=== PATIENT | female | born 1990 | race American Indian/Alaskan Native ===

== ENCOUNTER 2017-06-20 23:20 | Inpatient (IN) | payer OTHER ==
[2017-06-20] MEDS ORDERED: NACL 0.9% 1000 ML 1,000 ML IV ONE (23:30)
[2017-06-20] MEDS ORDERED: GEODON IM PRN (23:30)
--- NOTE | 2017-06-20 23:38 | Emergency Department Report ---
ED General Adult HPI - General Chief complaint: Altered Mental Status Stated complaint: POSS OVERDOSE/AMS Time Seen by Provider: 06/20/17 23:30 Source: patient, family, EMS (verbal report received from EMS.ems notes not available at time of chart dictation), RN notes reviewed Limitations: Altered Mental Status - History of Present Illness Initial comments: This is a 26-year-old female. She is previously unknown to me. She is brought to the hospital by EMS for altered mental status and possible overdose. As per verbal report from EMS, patient is found down, at home, for uncertain duration of time, via uncertain mechanism. They report normal fingerstick. Upon arrival to the ER, patient was altered, combative, not following commands. She required Geodon to facilitate her diagnostic workup. A noncontrast CT scan of the brain was negative, the patient was afebrile rectally, serum toxicology screen was negative, she had a nonspecific leukocytosis, and otherwise her workup was unremarkable. Her mother arrived shortly thereafter, and indicated the patient had been depressed, and has lost her job. She is not sure if the patient has attempted suicide. The patient's symptoms are constant. I do not have any exacerbating or relieving factors. The local Poison Control Center was contacted, and made the following recommendations: 2330 Arrive per EMS. Non responsive but moving extremities and combative at times. Clothes very wet. Placed on monitor and O2 sat. Positioning in position. Dr Ovalle at bedside evaluating pt. Menses noted and foly cath placed. EJ #18 left neck placed by Dr Ovalle. INT #20 established by EMS in Right AC. Mother at bedside. 0030 No worsening of condition. Continues to be monitored. 0130 Continues to be monitored. 0300 POISON CONTROL CALLED AND INSTRUCTIONS ARE: SEDATION TO BE EXPECTED AND ANTICHOLERNERGIC SYMPTOMS.NO GEODON NOR HALDOL ONLY BENZO. PHYSOSTIGMINE FOR SEVERE AND REFRACTORY SYMPTOMS. CHECK EKG FOR QT ELONGATION (CHECK POTASSIUM, CALCIUM MAGNESIUM) AND WIDE QRS (TO BE TREATED WITH BICARB) TO BE OBSERVED 6 TO 8 HOURS. Patient is currently sedated, sleeping comfortably, with no distress. A 1013 form is filled out. The case is presented to the Hospital physician, Dr. Phan, who accepts the patient to his service for possible overdose, presumed toxic encephalopathy. Given unknown duration of time, uncertain time of ingestion, the patient is on a charcoal candidate, and she is not a TPA candidate. -: unknown Consistency: constant Improves with: none Worsens with: none Associated Symptoms: confusion - Related Data Home Medications Medication Instructions Recorded Confirmed Last Taken Flexeril 10 MG TAB 1 tab PO BID PRN 06/21/17 06/21/17 Unknown Allergies Allergy/AdvReac Type Severity Reaction Status Date / Time pseudoephedrine HCl Allergy Itching Verified 06/21/17 03:05 [From [facility]] ED Review of Systems ROS: Stated complaint: POSS OVERDOSE/AMS Other details as noted in HPI Comment: Unobtainable due to pts medical conditions Neurological: confusion Psychiatric: depression ED Past Medical Hx - Medications Home Medications: Home Medications Medication Instructions Recorded Confirmed Last Taken Type Flexeril 10 MG TAB 1 tab PO BID PRN 06/21/17 06/21/17 Unknown History ED Physical Exam - General Limitations: Physical Limitation General appearance: lethargic - Head Head exam: Present: atraumatic, normocephalic - Eye Eye exam: Present: normal appearance, EOMI. Absent: nystagmus - ENT ENT exam: Present: normal exam, normal orophraynx, mucous membranes moist, normal external ear exam - Neck Neck exam: Present: normal inspection, full ROM. Absent: tenderness, meningismus - Respiratory Respiratory exam: Present: normal lung sounds bilaterally. Absent: respiratory distress, wheezes, rales, rhonchi, stridor, chest wall tenderness, accessory muscle use, decreased breath sounds, prolonged expiratory - Cardiovascular Cardiovascular Exam: Present: normal rhythm, tachycardia, normal heart sounds. Absent: systolic murmur, diastolic murmur, rubs, gallop - GI/Abdominal GI/Abdominal exam: Present: soft, normal bowel sounds. Absent: distended, tenderness, guarding, rebound, rigid, pulsatile mass - Rectal Rectal exam: Present: normal inspection, other (escorted by nurse modesto brody) - External exam: Present: normal external exam, other (escorted by nurse Horta) - Extremities Exam Extremities exam: Present: normal inspection. Absent: tenderness - Back Exam Back exam: Present: normal inspection. Absent: tenderness, paraspinal tenderness - Neurological Exam Neurological exam: Present: altered, other (patient is moving 4 extremities spontaneously) - Psychiatric Psychiatric exam: Present: anxious - Skin Skin exam: Present: warm, dry, intact, normal color. Absent: rash ED Course Vital Signs 06/20/17 06/21/17 06/21/17 23:45 00:00 01:00 Temperature 96.5 F L Pulse Rate 111 H 110 H 109 H Respiratory 20 20 20 Rate Blood Pressure 117/79 113/75 104/64 [Left] O2 Sat by Pulse 100 100 100 Oximetry 06/21/17 06/21/17 06/21/17 02:00 03:00 04:00 Temperature Pulse Rate 102 H 102 H 99 H Respiratory 18 18 18 Rate Blood Pressure 99/67 99/58 98/64 [Left] O2 Sat by Pulse 100 100 100 Oximetry - EJ/Peripheral Line Neck L Time Out Performed: Yes Indications: multiple IV sites needed Skin Cleansed in Sterile Fashion: Yes Size: 18 Dressing Placed: Tegaderm Patient Tolerated Procedure: well ED Medical Decision Making - Lab Data Result diagrams: 06/21/17 00:15 06/21/17 00:15 Vital Signs 06/20/17 06/21/17 06/21/17 23:45 00:00 01:00 Temperature 96.5 F L Pulse Rate 111 H 110 H 109 H Respiratory 20 20 20 Rate Blood Pressure 117/79 113/75 104/64 [Left] O2 Sat by Pulse 100 100 100 Oximetry 06/21/17 06/21/17 06/21/17 02:00 03:00 04:00 Temperature Pulse Rate 102 H 102 H 99 H Respiratory 18 18 18 Rate Blood Pressure 99/67 99/58 98/64 [Left] O2 Sat by Pulse 100 100 100 Oximetry 06/21/17 05:03 Temperature Pulse Rate 94 H Respiratory 18 Rate Blood Pressure 94/61 [Left] O2 Sat by Pulse 100 Oximetry Lab Results 06/21/17 06/21/17 06/21/17 Range/Units 00:15 00:15 00:15 WBC 18.2 H (4.5-11.0) K/mm3 RBC 4.07 (3.65-5.03) M/mm3 Hgb 12.4 (10.1-14.3) gm/dl Hct 38.2 (30.3-42.9) % MCV 94 (79-97) fl MCH 31 (28-32) pg MCHC 33 (30-34) % RDW 13.6 (13.2-15.2) % Plt Count 248 (140-440) K/mm3 Lymph % (Auto) 8.4 L (13.4-35.0) % Parmer % (Auto) 6.4 (0.0-7.3) % Eos % (Auto) 0.4 (0.0-4.3) % Baso % (Auto) 0.2 (0.0-1.8) % Lymph # 1.5 (1.2-5.4) K/mm3 Parmer # 1.2 H (0.0-0.8) K/mm3 Eos # 0.1 (0.0-0.4) K/mm3 Baso # 0.0 (0.0-0.1) K/mm3 Seg Neutrophils % 84.6 H (40.0-70.0) % Seg Neutrophils # 15.4 H (1.8-7.7) K/mm3 PT 14.9 (12.2-14.9) Sec. INR 1.11 (0.87-1.13) APTT 28.8 (24.2-36.6) Sec. Sodium 139 (137-145) mmol/L Potassium 3.5 L (3.6-5.0) mmol/L Chloride 101.6 (98-107) mmol/L Carbon Dioxide 21 L (22-30) mmol/L Anion Gap 20 mmol/L BUN 10 (7-17) mg/dL Creatinine 0.6 L (0.7-1.2) mg/dL Estimated GFR > 60 ml/min BUN/Creatinine Ratio 16.66 % Glucose 88 (65-100) mg/dL Lactic Acid (0.7-2.0) mmol/L Calcium 9.1 (8.4-10.2) mg/dL Total Bilirubin 0.40 (0.1-1.2) mg/dL AST 12 (5-40) units/L ALT 11 (7-56) units/L Alkaline Phosphatase 49 (35-129) units/L Ammonia (25-60) umol/L Total Creatine Kinase (30-135) units/L Troponin T < 0.010 (0.00-0.029) ng/mL Total Protein 8.1 (6.3-8.2) g/dL Albumin 4.6 (3.9-5) g/dL Albumin/Globulin Ratio 1.3 % TSH (0.270-4.200) mlU/mL HCG, Quant (0-4) mIU/mL Salicylates (2.8-20.0) mg/dL Acetaminophen (10.0-30.0) ug/mL Plasma/Serum Alcohol (0-0.07) gm% 06/21/17 06/21/17 06/21/17 Range/Units 00:15 00:15 00:15 WBC (4.5-11.0) K/mm3 RBC (3.65-5.03) M/mm3 Hgb (10.1-14.3) gm/dl Hct (30.3-42.9) % MCV (79-97) fl MCH (28-32) pg MCHC (30-34) % RDW (13.2-15.2) % Plt Count (140-440) K/mm3 Lymph % (Auto) (13.4-35.0) % Parmer % (Auto) (0.0-7.3) % Eos % (Auto) (0.0-4.3) % Baso % (Auto) (0.0-1.8) % Lymph # (1.2-5.4) K/mm3 Parmer # (0.0-0.8) K/mm3 Eos # (0.0-0.4) K/mm3 Baso # (0.0-0.1) K/mm3 Seg Neutrophils % (40.0-70.0) % Seg Neutrophils # (1.8-7.7) K/mm3 PT (12.2-14.9) Sec. INR (0.87-1.13) APTT (24.2-36.6) Sec. Sodium (137-145) mmol/L Potassium (3.6-5.0) mmol/L Chloride (98-107) mmol/L Carbon Dioxide (22-30) mmol/L Anion Gap mmol/L BUN (7-17) mg/dL Creatinine (0.7-1.2) mg/dL Estimated GFR ml/min BUN/Creatinine Ratio % Glucose (65-100) mg/dL Lactic Acid 1.40 (0.7-2.0) mmol/L Calcium (8.4-10.2) mg/dL Total Bilirubin (0.1-1.2) mg/dL AST (5-40) units/L ALT (7-56) units/L Alkaline Phosphatase (35-129) units/L Ammonia (25-60) umol/L Total Creatine Kinase (30-135) units/L Troponin T (0.00-0.029) ng/mL Total Protein (6.3-8.2) g/dL Albumin (3.9-5) g/dL Albumin/Globulin Ratio % TSH (0.270-4.200) mlU/mL HCG, Quant (0-4) mIU/mL Salicylates < 0.3 L (2.8-20.0) mg/dL Acetaminophen < 15.0 (10.0-30.0) ug/mL Plasma/Serum Alcohol (0-0.07) gm% 06/21/17 06/21/17 06/21/17 Range/Units 00:15 00:15 00:15 WBC (4.5-11.0) K/mm3 RBC (3.65-5.03) M/mm3 Hgb (10.1-14.3) gm/dl Hct (30.3-42.9) % MCV (79-97) fl MCH (28-32) pg MCHC (30-34) % RDW (13.2-15.2) % Plt Count (140-440) K/mm3 Lymph % (Auto) (13.4-35.0) % Parmer % (Auto) (0.0-7.3) % Eos % (Auto) (0.0-4.3) % Baso % (Auto) (0.0-1.8) % Lymph # (1.2-5.4) K/mm3 Parmer # (0.0-0.8) K/mm3 Eos # (0.0-0.4) K/mm3 Baso # (0.0-0.1) K/mm3 Seg Neutrophils % (40.0-70.0) % Seg Neutrophils # (1.8-7.7) K/mm3 PT (12.2-14.9) Sec. INR (0.87-1.13) APTT (24.2-36.6) Sec. Sodium (137-145) mmol/L Potassium (3.6-5.0) mmol/L Chloride (98-107) mmol/L Carbon Dioxide (22-30) mmol/L Anion Gap mmol/L BUN (7-17) mg/dL Creatinine (0.7-1.2) mg/dL Estimated GFR ml/min BUN/Creatinine Ratio % Glucose (65-100) mg/dL Lactic Acid (0.7-2.0) mmol/L Calcium (8.4-10.2) mg/dL Total Bilirubin (0.1-1.2) mg/dL AST (5-40) units/L ALT (7-56) units/L Alkaline Phosphatase (35-129) units/L Ammonia 29.0 (25-60) umol/L Total Creatine Kinase 101 (30-135) units/L Troponin T (0.00-0.029) ng/mL Total Protein (6.3-8.2) g/dL Albumin (3.9-5) g/dL Albumin/Globulin Ratio % TSH (0.270-4.200) mlU/mL HCG, Quant (0-4) mIU/mL Salicylates (2.8-20.0) mg/dL Acetaminophen (10.0-30.0) ug/mL Plasma/Serum Alcohol < 0.01 (0-0.07) gm% 06/21/17 06/21/17 Range/Units 00:15 00:15 WBC (4.5-11.0) K/mm3 RBC (3.65-5.03) M/mm3 Hgb (10.1-14.3) gm/dl Hct (30.3-42.9) % MCV (79-97) fl MCH (28-32) pg MCHC (30-34) % RDW (13.2-15.2) % Plt Count (140-440) K/mm3 Lymph % (Auto) (13.4-35.0) % Parmer % (Auto) (0.0-7.3) % Eos % (Auto) (0.0-4.3) % Baso % (Auto) (0.0-1.8) % Lymph # (1.2-5.4) K/mm3 Parmer # (0.0-0.8) K/mm3 Eos # (0.0-0.4) K/mm3 Baso # (0.0-0.1) K/mm3 Seg Neutrophils % (40.0-70.0) % Seg Neutrophils # (1.8-7.7) K/mm3 PT (12.2-14.9) Sec. INR (0.87-1.13) APTT (24.2-36.6) Sec. Sodium (137-145) mmol/L Potassium (3.6-5.0) mmol/L Chloride (98-107) mmol/L Carbon Dioxide (22-30) mmol/L Anion Gap mmol/L BUN (7-17) mg/dL Creatinine (0.7-1.2) mg/dL Estimated GFR ml/min BUN/Creatinine Ratio % Glucose (65-100) mg/dL Lactic Acid (0.7-2.0) mmol/L Calcium (8.4-10.2) mg/dL Total Bilirubin (0.1-1.2) mg/dL AST (5-40) units/L ALT (7-56) units/L Alkaline Phosphatase (35-129) units/L Ammonia (25-60) umol/L Total Creatine Kinase (30-135) units/L Troponin T (0.00-0.029) ng/mL Total Protein (6.3-8.2) g/dL Albumin (3.9-5) g/dL Albumin/Globulin Ratio % TSH 2.710 (0.270-4.200) mlU/mL HCG, Quant < 2 (0-4) mIU/mL Salicylates (2.8-20.0) mg/dL Acetaminophen (10.0-30.0) ug/mL Plasma/Serum Alcohol (0-0.07) gm% - EKG Data -: EKG Interpreted by Me EKG shows normal: sinus rhythm, axis, intervals, QRS complexes, ST-T waves - EKG Data When compared to previous EKG there are: previous EKG unavailable - Radiology Data Radiology results: report reviewed, image reviewed CT scan of the cervical spine is negative. X-ray the chest is negative. CT scan of the brain is negative. Critical care attestation.: If time is entered above; I have spent that time in minutes in the direct care of this critically ill patient, excluding procedure time. ED Disposition Clinical Impression: Encephalopathy, Overdose Disposition: OP ADMIT IP TO THIS HOSP Is pt being admited?: Yes Condition: Good
[2017-06-20] MEDS ORDERED: WATER FOR INJ (PF) 10 ML ONE (23:49)
[2017-06-20] MEDS ORDERED: GEODON IM ONE (23:49)
[2017-06-21 00:32] LABS: Basophils % (Auto) 0.2 % (0.0-1.8); Eosinophils % (Auto) 0.4 % (0.0-4.3); Hematocrit 38.2 % (30.3-42.9); Hemoglobin 12.4 gm/dl (10.1-14.3); Mean Corpuscular HGB Conc 33 % (30-34); Mean Corpuscular Hemoglobin 31 pg (28-32); Mean Corpuscular Volume 94 fl (79-97); Platelet Count 248 K/mm3 (140-440); Red Blood Count 4.07 M/mm3 (3.65-5.03); Red Cell Distribution Width 13.6 % (13.2-15.2); White Blood Count 18.2 K/mm3 (4.5-11.0)
[2017-06-21 00:44] LABS: INR 1.11 (0.87-1.13)
[2017-06-21 00:45] LABS: Partial Thromboplastin Time 28.8 Sec. (24.2-36.6)
[2017-06-21 00:55] LABS: Alanine Aminotransferase 11 units/L (7-56); Albumin 4.6 g/dL (3.9-5); Albumin/Globulin Ratio 1.3 %; Alkaline Phosphatase 49 units/L (35-129); Anion Gap 20 mmol/L; BUN/Creatinine Ratio 16.66; Blood Urea Nitrogen 10 mg/dL (7-17); Calcium 9.1 mg/dL (8.4-10.2); Carbon Dioxide 21 mmol/L (22-30); Chloride 101.6 mmol/L (98-107); Glucose 88 mg/dL (65-100); Potassium 3.5 mmol/L (3.6-5.0); Sodium 139 mmol/L (137-145); Total Protein 8.1 g/dL (6.3-8.2)
--- NOTE | 2017-06-21 02:08 | Cat Scan Report ---
FINAL REPORT PROCEDURE: CT HEAD/BRAIN WO CON TECHNIQUE: Computerized tomography of the head was performed without contrast material. HISTORY: Altered Mental Status COMPARISON: No prior studies are available for comparison. FINDINGS: Skull and scalp: Normal. Paranasal sinuses: Normal. Ventricles and subarachnoid spaces: Normal. Cerebrum: No evidence of hemorrhage, acute infarction or mass . Cerebellum and brainstem: No evidence of hemorrhage, acute infarction or mass. Vasculature: Normal. Comments: None. IMPRESSION: There is no evidence of an acute intracranial process.
--- NOTE | 2017-06-21 02:35 | Cat Scan Report ---
FINAL REPORT PROCEDURE: CT CERVICAL SPINE WO CON TECHNIQUE: Computerized tomography of the cervical spine was performed from the skull base to T1 without contrast material. HISTORY: ams COMPARISON: No prior studies are available for comparison. FINDINGS: C1-2: No significant abnormality. C2-3: No significant abnormality. C3-4: No significant abnormality. C4-5: No significant abnormality. C5-6: No significant abnormality. C6-7: No significant abnormality. C7-T1: No significant abnormality. Other: There is no fracture or malalignment. There is no spinal or foraminal stenosis. The facet joints are intact. The prevertebral soft tissues are normal in thickness.. IMPRESSION: No significant abnormality.
[2017-06-21] MEDS ORDERED: NACL 0.9% 1000 ML 1,000 ML ONE ×2 (02:56→06:10)
[2017-06-21] MEDS ORDERED: NACL 0.9% 1000 ML 1,000 ML IV ONE (03:00)
[2017-06-21 05:30] LABS: Urine Drugs of Abuse Note Disclamer
[2017-06-21 05:43] LABS: Bacteria,Urine 1+ /HPF (Negative); Bilirubin,Urine NEG (Negative); Blood,Urine MOD (Negative); Ketones,Urine 20 mg/dL (Negative); Leukocyte Esterase,Urine NEG (Negative); Mucus,Urine 1+ /HPF; Nitrite,Urine NEG (Negative); Protein,Urine <15 mg/dL mg/dL (Negative); Urobilinogen,Urine < 2.0 mg/dL (<2.0)
[2017-06-21] MEDS ORDERED: ZOFRAN IV PRN (06:32)
[2017-06-21] MEDS ORDERED: TYLENOL PO PRN (06:32)
[2017-06-21] MEDS ORDERED: MILK OF MAGNESIA PO PRN (06:32)
[2017-06-21] MEDS ORDERED: DULCOLAX PR PRN (06:32)
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
--- NOTE | 2017-06-21 06:36 | History and Physical Report ---
Medications and Allergies Allergies Allergy/AdvReac Type Severity Reaction Status Date / Time pseudoephedrine HCl Allergy Itching Verified 06/21/17 03:05 [From [facility]] Home Medications Medication Instructions Recorded Confirmed Last Taken Type Flexeril 10 MG TAB 1 tab PO BID PRN 06/21/17 06/21/17 Unknown History Exam - Constitutional Vitals: Temp Pulse Resp BP Pulse Ox 96.5 F L 94 H 16 94/61 100 06/20/17 23:45 06/21/17 05:03 06/21/17 05:04 06/21/17 05:03 06/21/17 05:04 Results - Labs CBC & Chem 7: 06/21/17 00:15 06/21/17 00:15 Labs: Laboratory Last Values WBC 18.2 K/mm3 (4.5-11.0) H 06/21/17 00:15 RBC 4.07 M/mm3 (3.65-5.03) 06/21/17 00:15 Hgb 12.4 gm/dl (10.1-14.3) 06/21/17 00:15 Hct 38.2 % (30.3-42.9) 06/21/17 00:15 MCV 94 fl (79-97) 06/21/17 00:15 MCH 31 pg (28-32) 06/21/17 00:15 MCHC 33 % (30-34) 06/21/17 00:15 RDW 13.6 % (13.2-15.2) 06/21/17 00:15 Plt Count 248 K/mm3 (140-440) 06/21/17 00:15 Lymph % (Auto) 8.4 % (13.4-35.0) L 06/21/17 00:15 [place] % (Auto) 6.4 % (0.0-7.3) 06/21/17 00:15 Eos % (Auto) 0.4 % (0.0-4.3) 06/21/17 00:15 Baso % (Auto) 0.2 % (0.0-1.8) 06/21/17 00:15 Lymph # 1.5 K/mm3 (1.2-5.4) 06/21/17 00:15 [place] # 1.2 K/mm3 (0.0-0.8) H 06/21/17 00:15 Eos # 0.1 K/mm3 (0.0-0.4) 06/21/17 00:15 Baso # 0.0 K/mm3 (0.0-0.1) 06/21/17 00:15 Seg Neutrophils % 84.6 % (40.0-70.0) H 06/21/17 00:15 Seg Neutrophils # 15.4 K/mm3 (1.8-7.7) H 06/21/17 00:15 PT 14.9 Sec. (12.2-14.9) 06/21/17 00:15 INR 1.11 (0.87-1.13) 06/21/17 00:15 APTT 28.8 Sec. (24.2-36.6) 06/21/17 00:15 Sodium 139 mmol/L (137-145) 06/21/17 00:15 Potassium 3.5 mmol/L (3.6-5.0) L 06/21/17 00:15 Chloride 101.6 mmol/L (98-107) 06/21/17 00:15 Carbon Dioxide 21 mmol/L (22-30) L 06/21/17 00:15 Anion Gap 20 mmol/L 06/21/17 00:15 BUN 10 mg/dL (7-17) 06/21/17 00:15 Creatinine 0.6 mg/dL (0.7-1.2) L 06/21/17 00:15 Estimated GFR > 60 ml/min 06/21/17 00:15 BUN/Creatinine Ratio 16.66 % 06/21/17 00:15 Glucose 88 mg/dL (65-100) 06/21/17 00:15 Lactic Acid 1.40 mmol/L (0.7-2.0) 06/21/17 00:15 Calcium 9.1 mg/dL (8.4-10.2) 06/21/17 00:15 Total Bilirubin 0.40 mg/dL (0.1-1.2) 06/21/17 00:15 AST 12 units/L (5-40) 06/21/17 00:15 ALT 11 units/L (7-56) 06/21/17 00:15 Alkaline Phosphatase 49 units/L (35-129) 06/21/17 00:15 Ammonia 29.0 umol/L (25-60) 06/21/17 00:15 Total Creatine Kinase 101 units/L (30-135) 06/21/17 00:15 Troponin T < 0.010 ng/mL (0.00-0.029) 06/21/17 00:15 Total Protein 8.1 g/dL (6.3-8.2) 06/21/17 00:15 Albumin 4.6 g/dL (3.9-5) 06/21/17 00:15 Albumin/Globulin Ratio 1.3 % 06/21/17 00:15 TSH 2.710 mlU/mL (0.270-4.200) 06/21/17 00:15 HCG, Quant < 2 mIU/mL (0-4) 06/21/17 00:15 Urine Color Yellow (Yellow) 06/21/17 00:11 Urine Turbidity Clear (Clear) 06/21/17 00:11 Urine pH 5.0 (5.0-7.0) 06/21/17 00:11 Ur Specific [place] 1.014 (1.003-1.030) 06/21/17 00:11 Urine Protein <15 mg/dl mg/dL (Negative) 06/21/17 00:11 Urine Glucose (UA) Neg mg/dL (Negative) 06/21/17 00:11 Urine Ketones 20 mg/dL (Negative) 06/21/17 00:11 Urine Blood Mod (Negative) 06/21/17 00:11 Urine Nitrite Neg (Negative) 06/21/17 00:11 Urine Bilirubin Neg (Negative) 06/21/17 00:11 Urine Urobilinogen < 2.0 mg/dL (<2.0) 06/21/17 00:11 Ur Leukocyte Esterase Neg (Negative) 06/21/17 00:11 Urine WBC (Auto) 1.0 /HPF (0.0-6.0) 06/21/17 00:11 Urine RBC (Auto) 4.0 /HPF (0.0-6.0) 06/21/17 00:11 U Epithel Cells (Auto) < 1.0 /HPF (0-13.0) 06/21/17 00:11 Urine Bacteria (Auto) 1+ /HPF (Negative) 06/21/17 00:11 Hyaline Casts 2 /LPF 06/21/17 00:11 Urine Mucus 1+ /HPF 06/21/17 00:11 Salicylates < 0.3 mg/dL (2.8-20.0) L 06/21/17 00:15 Urine Opiates Screen Presumptive negative 06/21/17 00:11 Urine Methadone Screen Presumptive negative 06/21/17 00:11 Acetaminophen < 15.0 ug/mL (10.0-30.0) 06/21/17 00:15 Ur Barbiturates Screen Presumptive positive 06/21/17 00:11 Ur Phencyclidine Scrn Presumptive negative 06/21/17 00:11 Ur Amphetamines Screen Presumptive negative 06/21/17 00:11 U Benzodiazepines Scrn Presumptive negative 06/21/17 00:11 Urine Cocaine Screen Presumptive positive 06/21/17 00:11 U Marijuana (THC) Screen Presumptive negative 06/21/17 00:11 Drugs of Abuse Note Disclamer 06/21/17 00:11 Plasma/Serum Alcohol < 0.01 gm% (0-0.07) 06/21/17 00:15
[2017-06-21] MEDS ORDERED: HABITROL TD ONE (06:56)
[2017-06-21] MEDS ORDERED: ATIVAN IV PRN ×3 (06:59)
[2017-06-21] MEDS ORDERED: HALDOL IV PRN (06:59)
[2017-06-21 07:18] LABS: Basophils % (Auto) 0.6 % (0.0-1.8); Eosinophils % (Auto) 0.8 % (0.0-4.3); Hematocrit 34.2 % (30.3-42.9); Hemoglobin 11.4 gm/dl (10.1-14.3); Mean Corpuscular HGB Conc 33 % (30-34); Mean Corpuscular Hemoglobin 31 pg (28-32); Mean Corpuscular Volume 93 fl (79-97); Platelet Count 217 K/mm3 (140-440); Red Blood Count 3.68 M/mm3 (3.65-5.03); Red Cell Distribution Width 13.5 % (13.2-15.2); White Blood Count 14.7 K/mm3 (4.5-11.0)
[2017-06-21 07:21] LABS: Albumin 3.8 g/dL (3.9-5); Albumin/Globulin Ratio 1.6 %; Alkaline Phosphatase 40 units/L (35-129); Anion Gap 16 mmol/L; Blood Urea Nitrogen 7 mg/dL (7-17); Calcium 7.7 mg/dL (8.4-10.2); Carbon Dioxide 21 mmol/L (22-30); Chloride 108.1 mmol/L (98-107); Glucose 85 mg/dL (65-100); Potassium 3.9 mmol/L (3.6-5.0); Sodium 141 mmol/L (137-145); Total Protein 6.2 g/dL (6.3-8.2)
[2017-06-21 09:44] LABS: Alanine Aminotransferase 11 units/L (7-56)
--- NOTE | 2017-06-21 10:56 | XRay Report ---
AP CHEST :06/21/17 CLINICAL: Altered mental status. Found unconscious. COMPARISON:None. FINDINGS: Normal heart and pulmonary vasculature. The lungs are normally expanded and clear. The bones and soft tissues are normal. IMPRESSION: Normal chest.
--- NOTE | 2017-06-21 17:32 | Event Note ---
Date: 06/21/17 Reviewed chart and examined patient. She is somnolent but easily arousable, and follows commands/answers questions. She is protecting her airway and hemodynamically stable. Continue current care and consider transfer to floor in AM.
[2017-06-21] MEDS: LOVENOX SUB-Q SCH (19:21)
[2017-06-21] MEDS: D5NS 1,000 ML IV SCH (20:58)
[2017-06-22 05:13] LABS: Eosinophils % (Auto) 1.5 % (0.0-4.3); Hemoglobin 10.9 gm/dl (10.1-14.3); Mean Corpuscular HGB Conc 33 % (30-34); Mean Corpuscular Hemoglobin 31 pg (28-32); Mean Corpuscular Volume 93 fl (79-97); Platelet Count 205 K/mm3 (140-440); Red Blood Count 3.53 M/mm3 (3.65-5.03); Red Cell Distribution Width 13.6 % (13.2-15.2)
[2017-06-22 05:35] LABS: Albumin 3.5 g/dL (3.9-5); Albumin/Globulin Ratio 1.4 %; Alkaline Phosphatase 39 units/L (35-129); Anion Gap 15 mmol/L; BUN/Creatinine Ratio 8.33; Blood Urea Nitrogen 5 mg/dL (7-17); Calcium 8.1 mg/dL (8.4-10.2); Carbon Dioxide 23 mmol/L (22-30); Chloride 108.8 mmol/L (98-107); Glucose 112 mg/dL (65-100); Potassium 3.6 mmol/L (3.6-5.0); Sodium 143 mmol/L (137-145)
[2017-06-22 06:00] LABS: Alanine Aminotransferase 7 units/L (7-56)
[2017-06-22] MEDS: D5NS 1,000 ML IV SCH (06:53)
[2017-06-22] MEDS ORDERED: ATIVAN IV PRN (09:11)
[2017-06-22] MEDS: LOVENOX SUB-Q SCH (10:32)
--- NOTE | 2017-06-22 17:04 | Progress Note ---
Assessment and Plan Assessment and plan: --Toxic metabolic encephalopathy Secondary to drug overdose, patient is more alert and awake today, continue supportive care --Drug overdose with muscle relaxers, Supportive care --Suicidal ideation; patient is on suicidal watch Psychiatric evaluation, possible transfer to inpatient psych facility when medically stable --DVT prophylaxis; SCDs Closely monitor the patient and adjust management as needed, 1013 status Patient is stable to be transferred out of ICU to medical floor today Plan of care discussed with the patient, her mother at the bedside and her nurse History Interval history: Patient Seen and examined in ICU this morning medical records reviewed Patient is more alert today, responding to simple questions appropriately, does not want to talk much Does not want to respond to some questions No new complaints, alert awake oriented 3 not in acute distress Vital signs reviewed Hospitalist Physical - Constitutional Vitals: Temp Pulse Resp BP Pulse Ox 98.9 F 89 18 122/84 99 06/22/17 15:52 06/22/17 15:52 06/22/17 15:52 06/22/17 15:52 06/22/17 15:52 General appearance: Present: no acute distress, well-nourished - EENT Eyes: Present: PERRL, EOM intact - Neck Neck: Present: supple, normal ROM - Respiratory Respiratory effort: normal Respiratory: negative: rales, rhonchi, wheezing - Cardiovascular Rhythm: regular Heart Sounds: Present: S1 & S2 - Extremities Extremities: no ischemia, No edema - Abdominal General gastrointestinal: soft, non-tender, non-distended, normal bowel sounds - Integumentary Integumentary: Present: clear, warm - Psychiatric Psychiatric: depressed, other (very quiet minimally communicative,) - Neurologic Neurologic: CNII-XII intact, moves all extremities Results - Labs CBC & Chem 7: 06/22/17 04:10 06/22/17 04:20 Labs: Laboratory Last Values WBC 10.0 K/mm3 (4.5-11.0) 06/22/17 04:10 RBC 3.53 M/mm3 (3.65-5.03) L 06/22/17 04:10 Hgb 10.9 gm/dl (10.1-14.3) 06/22/17 04:10 Hct 33.0 % (30.3-42.9) 06/22/17 04:10 MCV 93 fl (79-97) 06/22/17 04:10 MCH 31 pg (28-32) 06/22/17 04:10 MCHC 33 % (30-34) 06/22/17 04:10 RDW 13.6 % (13.2-15.2) 06/22/17 04:10 Plt Count 205 K/mm3 (140-440) 06/22/17 04:10 Lymph % (Auto) 26.2 % (13.4-35.0) 06/22/17 04:10 [place] % (Auto) 6.3 % (0.0-7.3) 06/22/17 04:10 Eos % (Auto) 1.5 % (0.0-4.3) 06/22/17 04:10 Baso % (Auto) 1.0 % (0.0-1.8) 06/22/17 04:10 Lymph # 2.6 K/mm3 (1.2-5.4) 06/22/17 04:10 [place] # 0.6 K/mm3 (0.0-0.8) 06/22/17 04:10 Eos # 0.1 K/mm3 (0.0-0.4) 06/22/17 04:10 Baso # 0.1 K/mm3 (0.0-0.1) 06/22/17 04:10 Seg Neutrophils % 65.0 % (40.0-70.0) 06/22/17 04:10 Seg Neutrophils # 6.5 K/mm3 (1.8-7.7) 06/22/17 04:10 PT 14.9 Sec. (12.2-14.9) 06/21/17 00:15 INR 1.11 (0.87-1.13) 06/21/17 00:15 APTT 28.8 Sec. (24.2-36.6) 06/21/17 00:15 Sodium 143 mmol/L (137-145) 06/22/17 04:20 Potassium 3.6 mmol/L (3.6-5.0) 06/22/17 04:20 Chloride 108.8 mmol/L (98-107) H 06/22/17 04:20 Carbon Dioxide 23 mmol/L (22-30) 06/22/17 04:20 Anion Gap 15 mmol/L 06/22/17 04:20 BUN 5 mg/dL (7-17) L 06/22/17 04:20 Creatinine 0.6 mg/dL (0.7-1.2) L 06/22/17 04:20 Estimated GFR > 60 ml/min 06/22/17 04:20 BUN/Creatinine Ratio 8.33 % 06/22/17 04:20 Glucose 112 mg/dL (65-100) H 06/22/17 04:20 Lactic Acid 1.40 mmol/L (0.7-2.0) 06/21/17 00:15 Calcium 8.1 mg/dL (8.4-10.2) L 06/22/17 04:20 Total Bilirubin 0.50 mg/dL (0.1-1.2) 06/22/17 04:20 AST 12 units/L (5-40) 06/22/17 04:20 ALT 7 units/L (7-56) 06/22/17 04:20 Alkaline Phosphatase 39 units/L (35-129) 06/22/17 04:20 Ammonia 29.0 umol/L (25-60) 06/21/17 00:15 Total Creatine Kinase 101 units/L (30-135) 06/21/17 00:15 Troponin T < 0.010 ng/mL (0.00-0.029) 06/21/17 00:15 Total Protein 6.0 g/dL (6.3-8.2) L 06/22/17 04:20 Albumin 3.5 g/dL (3.9-5) L 06/22/17 04:20 Albumin/Globulin Ratio 1.4 % 06/22/17 04:20 TSH 2.710 mlU/mL (0.270-4.200) 06/21/17 00:15 HCG, Quant < 2 mIU/mL (0-4) 06/21/17 00:15 Urine Color Yellow (Yellow) 06/21/17 00:11 Urine Turbidity Clear (Clear) 06/21/17 00:11 Urine pH 5.0 (5.0-7.0) 06/21/17 00:11 Ur Specific [place] 1.014 (1.003-1.030) 06/21/17 00:11 Urine Protein <15 mg/dl mg/dL (Negative) 06/21/17 00:11 Urine Glucose (UA) Neg mg/dL (Negative) 06/21/17 00:11 Urine Ketones 20 mg/dL (Negative) 06/21/17 00:11 Urine Blood Mod (Negative) 06/21/17 00:11 Urine Nitrite Neg (Negative) 06/21/17 00:11 Urine Bilirubin Neg (Negative) 06/21/17 00:11 Urine Urobilinogen < 2.0 mg/dL (<2.0) 06/21/17 00:11 Ur Leukocyte Esterase Neg (Negative) 06/21/17 00:11 Urine WBC (Auto) 1.0 /HPF (0.0-6.0) 06/21/17 00:11 Urine RBC (Auto) 4.0 /HPF (0.0-6.0) 06/21/17 00:11 U Epithel Cells (Auto) < 1.0 /HPF (0-13.0) 06/21/17 00:11 Urine Bacteria (Auto) 1+ /HPF (Negative) 06/21/17 00:11 Hyaline Casts 2 /LPF 06/21/17 00:11 Urine Mucus 1+ /HPF 06/21/17 00:11 Salicylates < 0.3 mg/dL (2.8-20.0) L 06/21/17 00:15 Urine Opiates Screen Presumptive negative 06/21/17 00:11 Urine Methadone Screen Presumptive negative 06/21/17 00:11 Acetaminophen < 15.0 ug/mL (10.0-30.0) 06/21/17 00:15 Ur Barbiturates Screen Presumptive positive 06/21/17 00:11 Ur Phencyclidine Scrn Presumptive negative 06/21/17 00:11 Ur Amphetamines Screen Presumptive negative 06/21/17 00:11 U Benzodiazepines Scrn Presumptive negative 06/21/17 00:11 Urine Cocaine Screen Presumptive positive 06/21/17 00:11 U Marijuana (THC) Screen Presumptive negative 06/21/17 00:11 Drugs of Abuse Note Disclamer 06/21/17 00:11 Plasma/Serum Alcohol < 0.01 gm% (0-0.07) 06/21/17 00:15
--- NOTE | 2017-06-23 09:21 | Admit Criteria Form ---
Admission Criteria Documentation: DRUG INGESTION OR OVERDOSE Clinical Indications for Admission to Inpatient Care ( Place 'X' for any and all applicable criteria): Admission is indicated for severe toxicity as indicated by ANY ONE of the following(1)(2)(3)(4)(5)(6): [X]I. Inpatient admission required rather than observation care (Also use Drug Ingestion or Overdose: Observation Care guideline as appropriate) because of ANY ONE of the following: [X]a) Altered mental status that is severe or persistent [ ]b) Clinical finding (eg, metabolic acidosis, hypoglycemia, bradycardia) that is severe or persistent [ ]c) Toxic drug level that is persistent [ ]d) Psychiatric risk status not acceptable for outpatient management [ ]e) Continuous intravenous infusion of anticoagulation, platelet inhibitor, vasoactive, or antiarrhythmic medication (15)(16) [ ]f) Other condition, treatment or monitoring requiring inpatient admission [ ]II. Respiratory abnormalities [ ]III. Specific finding indicating severe and likely prolonged drug toxicity [ ]IV. Hemodynamic instability [ ]V. Dangerous arrhythmia [ ]. Hypertension requiring inpatient treatment Extended stay beyond goal length of stay may be needed for (4): [ ]a) Neurologic or respiratory compromise [ ]b) Hemodynamic instability [ ]c) Persistent toxic drug levels (25) [ ]d) Severe drug toxicities or complications [ ]e) Ongoing antidote treatment (eg, acetaminophen overdose)(5) [ ]f) Older patients(65 years or older) The original [employer] content created by [employer] has been revised. The portions of the content which have been revised are identified through the use of italic text or in bold, and [facility] has neither reviewed nor approved the modified material. All other unmodified content is copyright [facility] [employer] Please see references footnoted in the original [facility] [employer] edition 2016 Admission Criteria Met: Yes
[2017-06-23] MEDS: LOVENOX SUB-Q SCH (11:02)
--- NOTE | 2017-06-23 14:40 | Progress Note ---
Assessment and Plan Assessment and plan: --Toxic metabolic encephalopathy,Secondary to drug overdose, Resolved , patient is more alert and awake oriented 3 , right following --Drug overdose with muscle relaxers, comes completely resolved, supportive care --Suicidal ideation; patient is on suicidal watch Patient is medically stable, --DVT prophylaxis; SCDs Patient is medically stable for discharge and transfer to inpatient psych facility as recommended by psych. Discussed with psych nurse the discharge plan Discussed with the patient and mother at the bedside about the DC plan History Interval history: Patient seen and evaluated this morning medical records reviewed No new events reported by the nursing staff Patient is more alert and awake oriented 3 not in acute distress Patient denies any depression, suicidal thoughts or suicidal ideations On 1012 status, mother at the bedside Hospitalist Physical - Constitutional Vitals: Temp Pulse Resp BP Pulse Ox 98.4 F 93 H 18 109/78 99 06/23/17 07:27 06/23/17 07:27 06/23/17 07:27 06/23/17 07:27 06/22/17 15:52 General appearance: Present: no acute distress, well-nourished - EENT Eyes: Present: PERRL, EOM intact - Neck Neck: Present: supple, normal ROM - Respiratory Respiratory effort: normal, pursed lips - Cardiovascular Rhythm: regular Heart Sounds: Present: S1 & S2 - Extremities Extremities: no ischemia, pulses intact, pulses symmetrical Peripheral Pulses: within normal limits - Abdominal General gastrointestinal: soft, non-tender, non-distended, normal bowel sounds - Integumentary Integumentary: Present: clear, warm - Psychiatric Psychiatric: appropriate mood/affect, cooperative - Neurologic Neurologic: CNII-XII intact, moves all extremities Results - Labs CBC & Chem 7: 06/22/17 04:10 06/22/17 04:20 Labs: Laboratory Last Values WBC 10.0 K/mm3 (4.5-11.0) 06/22/17 04:10 RBC 3.53 M/mm3 (3.65-5.03) L 06/22/17 04:10 Hgb 10.9 gm/dl (10.1-14.3) 06/22/17 04:10 Hct 33.0 % (30.3-42.9) 06/22/17 04:10 MCV 93 fl (79-97) 06/22/17 04:10 MCH 31 pg (28-32) 06/22/17 04:10 MCHC 33 % (30-34) 06/22/17 04:10 RDW 13.6 % (13.2-15.2) 06/22/17 04:10 Plt Count 205 K/mm3 (140-440) 06/22/17 04:10 Lymph % (Auto) 26.2 % (13.4-35.0) 06/22/17 04:10 [place] % (Auto) 6.3 % (0.0-7.3) 06/22/17 04:10 Eos % (Auto) 1.5 % (0.0-4.3) 06/22/17 04:10 Baso % (Auto) 1.0 % (0.0-1.8) 06/22/17 04:10 Lymph # 2.6 K/mm3 (1.2-5.4) 06/22/17 04:10 [place] # 0.6 K/mm3 (0.0-0.8) 06/22/17 04:10 Eos # 0.1 K/mm3 (0.0-0.4) 06/22/17 04:10 Baso # 0.1 K/mm3 (0.0-0.1) 06/22/17 04:10 Seg Neutrophils % 65.0 % (40.0-70.0) 06/22/17 04:10 Seg Neutrophils # 6.5 K/mm3 (1.8-7.7) 06/22/17 04:10 PT 14.9 Sec. (12.2-14.9) 06/21/17 00:15 INR 1.11 (0.87-1.13) 06/21/17 00:15 APTT 28.8 Sec. (24.2-36.6) 06/21/17 00:15 Sodium 143 mmol/L (137-145) 06/22/17 04:20 Potassium 3.6 mmol/L (3.6-5.0) 06/22/17 04:20 Chloride 108.8 mmol/L (98-107) H 06/22/17 04:20 Carbon Dioxide 23 mmol/L (22-30) 06/22/17 04:20 Anion Gap 15 mmol/L 06/22/17 04:20 BUN 5 mg/dL (7-17) L 06/22/17 04:20 Creatinine 0.6 mg/dL (0.7-1.2) L 06/22/17 04:20 Estimated GFR > 60 ml/min 06/22/17 04:20 BUN/Creatinine Ratio 8.33 % 06/22/17 04:20 Glucose 112 mg/dL (65-100) H 06/22/17 04:20 Lactic Acid 1.40 mmol/L (0.7-2.0) 06/21/17 00:15 Calcium 8.1 mg/dL (8.4-10.2) L 06/22/17 04:20 Total Bilirubin 0.50 mg/dL (0.1-1.2) 06/22/17 04:20 AST 12 units/L (5-40) 06/22/17 04:20 ALT 7 units/L (7-56) 06/22/17 04:20 Alkaline Phosphatase 39 units/L (35-129) 06/22/17 04:20 Ammonia 29.0 umol/L (25-60) 06/21/17 00:15 Total Creatine Kinase 101 units/L (30-135) 06/21/17 00:15 Troponin T < 0.010 ng/mL (0.00-0.029) 06/21/17 00:15 Total Protein 6.0 g/dL (6.3-8.2) L 06/22/17 04:20 Albumin 3.5 g/dL (3.9-5) L 06/22/17 04:20 Albumin/Globulin Ratio 1.4 % 06/22/17 04:20 TSH 2.710 mlU/mL (0.270-4.200) 06/21/17 00:15 HCG, Quant < 2 mIU/mL (0-4) 06/21/17 00:15 Urine Color Yellow (Yellow) 06/21/17 00:11 Urine Turbidity Clear (Clear) 06/21/17 00:11 Urine pH 5.0 (5.0-7.0) 06/21/17 00:11 Ur Specific [place] 1.014 (1.003-1.030) 06/21/17 00:11 Urine Protein <15 mg/dl mg/dL (Negative) 06/21/17 00:11 Urine Glucose (UA) Neg mg/dL (Negative) 06/21/17 00:11 Urine Ketones 20 mg/dL (Negative) 06/21/17 00:11 Urine Blood Mod (Negative) 06/21/17 00:11 Urine Nitrite Neg (Negative) 06/21/17 00:11 Urine Bilirubin Neg (Negative) 06/21/17 00:11 Urine Urobilinogen < 2.0 mg/dL (<2.0) 06/21/17 00:11 Ur Leukocyte Esterase Neg (Negative) 06/21/17 00:11 Urine WBC (Auto) 1.0 /HPF (0.0-6.0) 06/21/17 00:11 Urine RBC (Auto) 4.0 /HPF (0.0-6.0) 06/21/17 00:11 U Epithel Cells (Auto) < 1.0 /HPF (0-13.0) 06/21/17 00:11 Urine Bacteria (Auto) 1+ /HPF (Negative) 06/21/17 00:11 Hyaline Casts 2 /LPF 06/21/17 00:11 Urine Mucus 1+ /HPF 06/21/17 00:11 Salicylates < 0.3 mg/dL (2.8-20.0) L 06/21/17 00:15 Urine Opiates Screen Presumptive negative 06/21/17 00:11 Urine Methadone Screen Presumptive negative 06/21/17 00:11 Acetaminophen < 15.0 ug/mL (10.0-30.0) 06/21/17 00:15 Ur Barbiturates Screen Presumptive positive 06/21/17 00:11 Ur Phencyclidine Scrn Presumptive negative 06/21/17 00:11 Ur Amphetamines Screen Presumptive negative 06/21/17 00:11 U Benzodiazepines Scrn Presumptive negative 06/21/17 00:11 Urine Cocaine Screen Presumptive positive 06/21/17 00:11 U Marijuana (THC) Screen Presumptive negative 06/21/17 00:11 Drugs of Abuse Note Disclamer 06/21/17 00:11 Plasma/Serum Alcohol < 0.01 gm% (0-0.07) 06/21/17 00:15
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
[2017-06-24] MEDS: LOVENOX SUB-Q SCH (10:51)
--- NOTE | 2017-06-24 17:04 | Progress Note ---
Assessment and Plan Assessment and plan: --Drug overdose with muscle relaxers, comes completely resolved, supportive care --Toxic metabolic encephalopathy,Secondary to drug overdose, Resolved , patient is more alert and awake oriented 3 , right following --Suicidal ideation; patient is on suicidal watch Patient is medically stable, --DVT prophylaxis; SCDs --Discharge planning. per case management Patient is medically stable for discharge and transfer to inpatient psych facility as recommended by psych. Discussed with psych nurse the discharge plan, advised to continue 1013 and transferred to inpatient psych facility Discussed with the patient and mother at the bedside about the DC plan History Interval history: Since seen and evaluated in Hospital medical records reviewed Patient feels better no new complaints, denies depression or suicidal thoughts or ideation Mother at the bedside Hospitalist Physical - Constitutional Vitals: Temp Pulse Resp BP Pulse Ox 99.1 F 108 H 20 98/65 99 06/24/17 16:29 06/24/17 16:29 06/24/17 16:29 06/24/17 16:29 06/24/17 16:29 General appearance: Present: no acute distress, well-nourished - EENT Eyes: Present: PERRL, EOM intact - Neck Neck: Present: supple, normal ROM - Respiratory Respiratory effort: normal Respiratory: negative: diminished, rales, rhonchi - Cardiovascular Rhythm: regular Heart Sounds: Present: S1 & S2 - Extremities Extremities: no ischemia, pulses intact - Abdominal General gastrointestinal: soft, non-tender, non-distended, normal bowel sounds - Integumentary Integumentary: Present: clear, warm - Psychiatric Psychiatric: appropriate mood/affect, cooperative - Neurologic Neurologic: CNII-XII intact, moves all extremities Results - Labs CBC & Chem 7: 06/22/17 04:10 06/22/17 04:20 Labs: Laboratory Last Values WBC 10.0 K/mm3 (4.5-11.0) 06/22/17 04:10 RBC 3.53 M/mm3 (3.65-5.03) L 06/22/17 04:10 Hgb 10.9 gm/dl (10.1-14.3) 06/22/17 04:10 Hct 33.0 % (30.3-42.9) 06/22/17 04:10 MCV 93 fl (79-97) 06/22/17 04:10 MCH 31 pg (28-32) 06/22/17 04:10 MCHC 33 % (30-34) 06/22/17 04:10 RDW 13.6 % (13.2-15.2) 06/22/17 04:10 Plt Count 205 K/mm3 (140-440) 06/22/17 04:10 Lymph % (Auto) 26.2 % (13.4-35.0) 06/22/17 04:10 [place] % (Auto) 6.3 % (0.0-7.3) 06/22/17 04:10 Eos % (Auto) 1.5 % (0.0-4.3) 06/22/17 04:10 Baso % (Auto) 1.0 % (0.0-1.8) 06/22/17 04:10 Lymph # 2.6 K/mm3 (1.2-5.4) 06/22/17 04:10 [place] # 0.6 K/mm3 (0.0-0.8) 06/22/17 04:10 Eos # 0.1 K/mm3 (0.0-0.4) 06/22/17 04:10 Baso # 0.1 K/mm3 (0.0-0.1) 06/22/17 04:10 Seg Neutrophils % 65.0 % (40.0-70.0) 06/22/17 04:10 Seg Neutrophils # 6.5 K/mm3 (1.8-7.7) 06/22/17 04:10 PT 14.9 Sec. (12.2-14.9) 06/21/17 00:15 INR 1.11 (0.87-1.13) 06/21/17 00:15 APTT 28.8 Sec. (24.2-36.6) 06/21/17 00:15 Sodium 143 mmol/L (137-145) 06/22/17 04:20 Potassium 3.6 mmol/L (3.6-5.0) 06/22/17 04:20 Chloride 108.8 mmol/L (98-107) H 06/22/17 04:20 Carbon Dioxide 23 mmol/L (22-30) 06/22/17 04:20 Anion Gap 15 mmol/L 06/22/17 04:20 BUN 5 mg/dL (7-17) L 06/22/17 04:20 Creatinine 0.6 mg/dL (0.7-1.2) L 06/22/17 04:20 Estimated GFR > 60 ml/min 06/22/17 04:20 BUN/Creatinine Ratio 8.33 % 06/22/17 04:20 Glucose 112 mg/dL (65-100) H 06/22/17 04:20 Lactic Acid 1.40 mmol/L (0.7-2.0) 06/21/17 00:15 Calcium 8.1 mg/dL (8.4-10.2) L 06/22/17 04:20 Total Bilirubin 0.50 mg/dL (0.1-1.2) 06/22/17 04:20 AST 12 units/L (5-40) 06/22/17 04:20 ALT 7 units/L (7-56) 06/22/17 04:20 Alkaline Phosphatase 39 units/L (35-129) 06/22/17 04:20 Ammonia 29.0 umol/L (25-60) 06/21/17 00:15 Total Creatine Kinase 101 units/L (30-135) 06/21/17 00:15 Troponin T < 0.010 ng/mL (0.00-0.029) 06/21/17 00:15 Total Protein 6.0 g/dL (6.3-8.2) L 06/22/17 04:20 Albumin 3.5 g/dL (3.9-5) L 06/22/17 04:20 Albumin/Globulin Ratio 1.4 % 06/22/17 04:20 TSH 2.710 mlU/mL (0.270-4.200) 06/21/17 00:15 HCG, Quant < 2 mIU/mL (0-4) 06/21/17 00:15 Urine Color Yellow (Yellow) 06/21/17 00:11 Urine Turbidity Clear (Clear) 06/21/17 00:11 Urine pH 5.0 (5.0-7.0) 06/21/17 00:11 Ur Specific [place] 1.014 (1.003-1.030) 06/21/17 00:11 Urine Protein <15 mg/dl mg/dL (Negative) 06/21/17 00:11 Urine Glucose (UA) Neg mg/dL (Negative) 06/21/17 00:11 Urine Ketones 20 mg/dL (Negative) 06/21/17 00:11 Urine Blood Mod (Negative) 06/21/17 00:11 Urine Nitrite Neg (Negative) 06/21/17 00:11 Urine Bilirubin Neg (Negative) 06/21/17 00:11 Urine Urobilinogen < 2.0 mg/dL (<2.0) 06/21/17 00:11 Ur Leukocyte Esterase Neg (Negative) 06/21/17 00:11 Urine WBC (Auto) 1.0 /HPF (0.0-6.0) 06/21/17 00:11 Urine RBC (Auto) 4.0 /HPF (0.0-6.0) 06/21/17 00:11 U Epithel Cells (Auto) < 1.0 /HPF (0-13.0) 06/21/17 00:11 Urine Bacteria (Auto) 1+ /HPF (Negative) 06/21/17 00:11 Hyaline Casts 2 /LPF 06/21/17 00:11 Urine Mucus 1+ /HPF 06/21/17 00:11 Salicylates < 0.3 mg/dL (2.8-20.0) L 06/21/17 00:15 Urine Opiates Screen Presumptive negative 06/21/17 00:11 Urine Methadone Screen Presumptive negative 06/21/17 00:11 Acetaminophen < 15.0 ug/mL (10.0-30.0) 06/21/17 00:15 Ur Barbiturates Screen Presumptive positive 06/21/17 00:11 Ur Phencyclidine Scrn Presumptive negative 06/21/17 00:11 Ur Amphetamines Screen Presumptive negative 06/21/17 00:11 U Benzodiazepines Scrn Presumptive negative 06/21/17 00:11 Urine Cocaine Screen Presumptive positive 06/21/17 00:11 U Marijuana (THC) Screen Presumptive negative 06/21/17 00:11 Drugs of Abuse Note Disclamer 06/21/17 00:11 Plasma/Serum Alcohol < 0.01 gm% (0-0.07) 06/21/17 00:15
[2017-06-24] MEDS: WELLBUTRIN PO SCH (18:50)
--- NOTE | 2017-06-25 10:57 | Progress Note ---
Assessment and Plan Assessment and plan: --Suicidal attempt; patient is on suicidal watch --Drug overdose with muscle relaxers,symptoms completely resolved, --Toxic metabolic encephalopathy,Secondary to drug overdose, Resolved back to baseline mental status --DVT prophylaxis; SCDs --1013 status per psych --Discharge planning. Transfer to inpatient psych facility when set up per case management Patient is medically stable for discharge and transfer to inpatient psych facility plan of care discussed with the patient and her nurse History Interval history: Patient feels better no complaints Alert awake oriented 3 not in acute distress Hospitalist Physical - Constitutional Vitals: Temp Pulse Resp BP Pulse Ox 98.0 F 90 18 106/67 99 06/25/17 08:38 06/25/17 08:38 06/25/17 08:38 06/25/17 08:38 06/25/17 08:38 General appearance: Present: no acute distress, well-nourished - EENT Eyes: Present: PERRL, EOM intact - Neck Neck: Present: supple, normal ROM - Respiratory Respiratory effort: normal Respiratory: negative: rales, rhonchi, wheezing - Cardiovascular Rhythm: regular Heart Sounds: Present: S1 & S2 - Extremities Extremities: no ischemia, No edema - Abdominal General gastrointestinal: soft, non-tender, non-distended, normal bowel sounds - Integumentary Integumentary: Present: clear, warm - Psychiatric Psychiatric: appropriate mood/affect, cooperative - Neurologic Neurologic: CNII-XII intact, moves all extremities Results - Labs CBC & Chem 7: 06/22/17 04:10 06/22/17 04:20 Labs: Laboratory Last Values WBC 10.0 K/mm3 (4.5-11.0) 06/22/17 04:10 RBC 3.53 M/mm3 (3.65-5.03) L 06/22/17 04:10 Hgb 10.9 gm/dl (10.1-14.3) 06/22/17 04:10 Hct 33.0 % (30.3-42.9) 06/22/17 04:10 MCV 93 fl (79-97) 06/22/17 04:10 MCH 31 pg (28-32) 06/22/17 04:10 MCHC 33 % (30-34) 06/22/17 04:10 RDW 13.6 % (13.2-15.2) 06/22/17 04:10 Plt Count 205 K/mm3 (140-440) 06/22/17 04:10 Lymph % (Auto) 26.2 % (13.4-35.0) 06/22/17 04:10 [place] % (Auto) 6.3 % (0.0-7.3) 06/22/17 04:10 Eos % (Auto) 1.5 % (0.0-4.3) 06/22/17 04:10 Baso % (Auto) 1.0 % (0.0-1.8) 06/22/17 04:10 Lymph # 2.6 K/mm3 (1.2-5.4) 06/22/17 04:10 [place] # 0.6 K/mm3 (0.0-0.8) 06/22/17 04:10 Eos # 0.1 K/mm3 (0.0-0.4) 06/22/17 04:10 Baso # 0.1 K/mm3 (0.0-0.1) 06/22/17 04:10 Seg Neutrophils % 65.0 % (40.0-70.0) 06/22/17 04:10 Seg Neutrophils # 6.5 K/mm3 (1.8-7.7) 06/22/17 04:10 PT 14.9 Sec. (12.2-14.9) 06/21/17 00:15 INR 1.11 (0.87-1.13) 06/21/17 00:15 APTT 28.8 Sec. (24.2-36.6) 06/21/17 00:15 Sodium 143 mmol/L (137-145) 06/22/17 04:20 Potassium 3.6 mmol/L (3.6-5.0) 06/22/17 04:20 Chloride 108.8 mmol/L (98-107) H 06/22/17 04:20 Carbon Dioxide 23 mmol/L (22-30) 06/22/17 04:20 Anion Gap 15 mmol/L 06/22/17 04:20 BUN 5 mg/dL (7-17) L 06/22/17 04:20 Creatinine 0.6 mg/dL (0.7-1.2) L 06/22/17 04:20 Estimated GFR > 60 ml/min 06/22/17 04:20 BUN/Creatinine Ratio 8.33 % 06/22/17 04:20 Glucose 112 mg/dL (65-100) H 06/22/17 04:20 Lactic Acid 1.40 mmol/L (0.7-2.0) 06/21/17 00:15 Calcium 8.1 mg/dL (8.4-10.2) L 06/22/17 04:20 Total Bilirubin 0.50 mg/dL (0.1-1.2) 06/22/17 04:20 AST 12 units/L (5-40) 06/22/17 04:20 ALT 7 units/L (7-56) 06/22/17 04:20 Alkaline Phosphatase 39 units/L (35-129) 06/22/17 04:20 Ammonia 29.0 umol/L (25-60) 06/21/17 00:15 Total Creatine Kinase 101 units/L (30-135) 06/21/17 00:15 Troponin T < 0.010 ng/mL (0.00-0.029) 06/21/17 00:15 Total Protein 6.0 g/dL (6.3-8.2) L 06/22/17 04:20 Albumin 3.5 g/dL (3.9-5) L 06/22/17 04:20 Albumin/Globulin Ratio 1.4 % 06/22/17 04:20 TSH 2.710 mlU/mL (0.270-4.200) 06/21/17 00:15 HCG, Quant < 2 mIU/mL (0-4) 06/21/17 00:15 Urine Color Yellow (Yellow) 06/21/17 00:11 Urine Turbidity Clear (Clear) 06/21/17 00:11 Urine pH 5.0 (5.0-7.0) 06/21/17 00:11 Ur Specific [place] 1.014 (1.003-1.030) 06/21/17 00:11 Urine Protein <15 mg/dl mg/dL (Negative) 06/21/17 00:11 Urine Glucose (UA) Neg mg/dL (Negative) 06/21/17 00:11 Urine Ketones 20 mg/dL (Negative) 06/21/17 00:11 Urine Blood Mod (Negative) 06/21/17 00:11 Urine Nitrite Neg (Negative) 06/21/17 00:11 Urine Bilirubin Neg (Negative) 06/21/17 00:11 Urine Urobilinogen < 2.0 mg/dL (<2.0) 06/21/17 00:11 Ur Leukocyte Esterase Neg (Negative) 06/21/17 00:11 Urine WBC (Auto) 1.0 /HPF (0.0-6.0) 06/21/17 00:11 Urine RBC (Auto) 4.0 /HPF (0.0-6.0) 06/21/17 00:11 U Epithel Cells (Auto) < 1.0 /HPF (0-13.0) 06/21/17 00:11 Urine Bacteria (Auto) 1+ /HPF (Negative) 06/21/17 00:11 Hyaline Casts 2 /LPF 06/21/17 00:11 Urine Mucus 1+ /HPF 06/21/17 00:11 Salicylates < 0.3 mg/dL (2.8-20.0) L 06/21/17 00:15 Urine Opiates Screen Presumptive negative 06/21/17 00:11 Urine Methadone Screen Presumptive negative 06/21/17 00:11 Acetaminophen < 15.0 ug/mL (10.0-30.0) 06/21/17 00:15 Ur Barbiturates Screen Presumptive positive 06/21/17 00:11 Ur Phencyclidine Scrn Presumptive negative 06/21/17 00:11 Ur Amphetamines Screen Presumptive negative 06/21/17 00:11 U Benzodiazepines Scrn Presumptive negative 06/21/17 00:11 Urine Cocaine Screen Presumptive positive 06/21/17 00:11 U Marijuana (THC) Screen Presumptive negative 06/21/17 00:11 Drugs of Abuse Note Disclamer 06/21/17 00:11 Plasma/Serum Alcohol < 0.01 gm% (0-0.07) 06/21/17 00:15
[2017-06-25] MEDS: LOVENOX SUB-Q SCH (11:18)
[2017-06-25] MEDS: WELLBUTRIN PO SCH (11:19)
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
[2017-06-26] MEDS: LOVENOX SUB-Q SCH (10:33)
[2017-06-26] MEDS: WELLBUTRIN PO SCH (10:33)
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
--- NOTE | 2017-06-26 18:08 | Progress Note ---
Assessment and Plan Assessment and plan: --Suicidal attempt; patient is on suicidal watch --Drug overdose with muscle relaxers,symptoms completely resolved, --Toxic metabolic encephalopathy,Secondary to drug overdose, Resolved back to baseline mental status --DVT prophylaxis; SCDs --1013 status per psych --Discharge planning. Transfer to inpatient psych facility when set up per case management Patient is medically stable for discharge and transfer to inpatient psych facility plan of care discussed with the patient and her nurse History Interval history: No new complaints Vital signs stable 1013 status Hospitalist Physical - Constitutional Vitals: Temp Pulse Resp BP Pulse Ox 98.3 F 106 H 18 100/66 99 06/26/17 16:17 06/26/17 16:17 06/26/17 16:17 06/26/17 16:17 06/25/17 23:13 General appearance: Present: no acute distress, well-nourished - EENT Eyes: Present: PERRL, EOM intact - Neck Neck: Present: supple, normal ROM - Respiratory Respiratory effort: normal Respiratory: negative: rales, rhonchi, wheezing - Cardiovascular Rhythm: regular Heart Sounds: Present: S1 & S2 - Extremities Extremities: no ischemia, No edema - Abdominal General gastrointestinal: soft, non-tender, non-distended, normal bowel sounds - Integumentary Integumentary: Present: clear, warm - Psychiatric Psychiatric: appropriate mood/affect, cooperative - Neurologic Neurologic: CNII-XII intact, moves all extremities Results - Labs CBC & Chem 7: 06/22/17 04:10 06/22/17 04:20 Labs: Laboratory Last Values WBC 10.0 K/mm3 (4.5-11.0) 06/22/17 04:10 RBC 3.53 M/mm3 (3.65-5.03) L 06/22/17 04:10 Hgb 10.9 gm/dl (10.1-14.3) 06/22/17 04:10 Hct 33.0 % (30.3-42.9) 06/22/17 04:10 MCV 93 fl (79-97) 06/22/17 04:10 MCH 31 pg (28-32) 06/22/17 04:10 MCHC 33 % (30-34) 06/22/17 04:10 RDW 13.6 % (13.2-15.2) 06/22/17 04:10 Plt Count 205 K/mm3 (140-440) 06/22/17 04:10 Lymph % (Auto) 26.2 % (13.4-35.0) 06/22/17 04:10 [place] % (Auto) 6.3 % (0.0-7.3) 06/22/17 04:10 Eos % (Auto) 1.5 % (0.0-4.3) 06/22/17 04:10 Baso % (Auto) 1.0 % (0.0-1.8) 06/22/17 04:10 Lymph # 2.6 K/mm3 (1.2-5.4) 06/22/17 04:10 [place] # 0.6 K/mm3 (0.0-0.8) 06/22/17 04:10 Eos # 0.1 K/mm3 (0.0-0.4) 06/22/17 04:10 Baso # 0.1 K/mm3 (0.0-0.1) 06/22/17 04:10 Seg Neutrophils % 65.0 % (40.0-70.0) 06/22/17 04:10 Seg Neutrophils # 6.5 K/mm3 (1.8-7.7) 06/22/17 04:10 PT 14.9 Sec. (12.2-14.9) 06/21/17 00:15 INR 1.11 (0.87-1.13) 06/21/17 00:15 APTT 28.8 Sec. (24.2-36.6) 06/21/17 00:15 Sodium 143 mmol/L (137-145) 06/22/17 04:20 Potassium 3.6 mmol/L (3.6-5.0) 06/22/17 04:20 Chloride 108.8 mmol/L (98-107) H 06/22/17 04:20 Carbon Dioxide 23 mmol/L (22-30) 06/22/17 04:20 Anion Gap 15 mmol/L 06/22/17 04:20 BUN 5 mg/dL (7-17) L 06/22/17 04:20 Creatinine 0.6 mg/dL (0.7-1.2) L 06/22/17 04:20 Estimated GFR > 60 ml/min 06/22/17 04:20 BUN/Creatinine Ratio 8.33 % 06/22/17 04:20 Glucose 112 mg/dL (65-100) H 06/22/17 04:20 Lactic Acid 1.40 mmol/L (0.7-2.0) 06/21/17 00:15 Calcium 8.1 mg/dL (8.4-10.2) L 06/22/17 04:20 Total Bilirubin 0.50 mg/dL (0.1-1.2) 06/22/17 04:20 AST 12 units/L (5-40) 06/22/17 04:20 ALT 7 units/L (7-56) 06/22/17 04:20 Alkaline Phosphatase 39 units/L (35-129) 06/22/17 04:20 Ammonia 29.0 umol/L (25-60) 06/21/17 00:15 Total Creatine Kinase 101 units/L (30-135) 06/21/17 00:15 Troponin T < 0.010 ng/mL (0.00-0.029) 06/21/17 00:15 Total Protein 6.0 g/dL (6.3-8.2) L 06/22/17 04:20 Albumin 3.5 g/dL (3.9-5) L 06/22/17 04:20 Albumin/Globulin Ratio 1.4 % 06/22/17 04:20 TSH 2.710 mlU/mL (0.270-4.200) 06/21/17 00:15 HCG, Quant < 2 mIU/mL (0-4) 06/21/17 00:15 Urine Color Yellow (Yellow) 06/21/17 00:11 Urine Turbidity Clear (Clear) 06/21/17 00:11 Urine pH 5.0 (5.0-7.0) 06/21/17 00:11 Ur Specific [place] 1.014 (1.003-1.030) 06/21/17 00:11 Urine Protein <15 mg/dl mg/dL (Negative) 06/21/17 00:11 Urine Glucose (UA) Neg mg/dL (Negative) 06/21/17 00:11 Urine Ketones 20 mg/dL (Negative) 06/21/17 00:11 Urine Blood Mod (Negative) 06/21/17 00:11 Urine Nitrite Neg (Negative) 06/21/17 00:11 Urine Bilirubin Neg (Negative) 06/21/17 00:11 Urine Urobilinogen < 2.0 mg/dL (<2.0) 06/21/17 00:11 Ur Leukocyte Esterase Neg (Negative) 06/21/17 00:11 Urine WBC (Auto) 1.0 /HPF (0.0-6.0) 06/21/17 00:11 Urine RBC (Auto) 4.0 /HPF (0.0-6.0) 06/21/17 00:11 U Epithel Cells (Auto) < 1.0 /HPF (0-13.0) 06/21/17 00:11 Urine Bacteria (Auto) 1+ /HPF (Negative) 06/21/17 00:11 Hyaline Casts 2 /LPF 06/21/17 00:11 Urine Mucus 1+ /HPF 06/21/17 00:11 Salicylates < 0.3 mg/dL (2.8-20.0) L 06/21/17 00:15 Urine Opiates Screen Presumptive negative 06/21/17 00:11 Urine Methadone Screen Presumptive negative 06/21/17 00:11 Acetaminophen < 15.0 ug/mL (10.0-30.0) 06/21/17 00:15 Ur Barbiturates Screen Presumptive positive 06/21/17 00:11 Ur Phencyclidine Scrn Presumptive negative 06/21/17 00:11 Ur Amphetamines Screen Presumptive negative 06/21/17 00:11 U Benzodiazepines Scrn Presumptive negative 06/21/17 00:11 Urine Cocaine Screen Presumptive positive 06/21/17 00:11 U Marijuana (THC) Screen Presumptive negative 06/21/17 00:11 Drugs of Abuse Note Disclamer 06/21/17 00:11 Plasma/Serum Alcohol < 0.01 gm% (0-0.07) 06/21/17 00:15
--- NOTE | 2017-06-27 10:55 | Progress Note ---
Subjective - Reason for Consult Consult date: 06/27/17 Reason for consult: follow up - Chief Complaint Chief complaint: "I feel good." This is a 26-year-old female brought to the hospital by EMS for altered mental status and overdose. Today patient is calm and cooperative during the assessment. She denies SI/HI's and AVH's. She states she needs help with her coping skills. Her mother is at bedside. The patient denies side effects to the wellbutrin. Mental Status Exam - Vital signs Last Vital Signs Temp 98.4 F 06/27/17 08:12 Pulse 103 H 06/27/17 08:12 Resp 18 06/27/17 08:12 BP 108/54 06/27/17 08:12 Pulse Ox 99 06/26/17 23:58 Assessment and Plan MSE: Appearance: calm, cooperative Behavior: regular eye contact Speech: regular rate and tone Mood: "good" Affect: congruent to mood Thought Process: linear Thought Content: denies SI/HI and AVHs Motor Activity: no abnormal movements Cognition: A/Ox 3 Insight: fair Judgment: fair Assessment and Plan Impression: Historical Dx: Depression and ADHD. Substance Use DO (Cocaine). Impulsive behavior. Today patient is calm, cooperative during assessment. She denies SI but acknowledges the severity of her initial presentation and overdose. Recommendation/Plan: Continue 1013 with placement to inpatient psy services. Wellbutrin 150 mg PO daily for depression. Discussed generalized coping skills with patient.
[2017-06-27] MEDS: LOVENOX SUB-Q SCH (10:59)
[2017-06-27] MEDS: WELLBUTRIN PO SCH (11:00)
--- NOTE | 2017-06-27 11:52 | Progress Note ---
Assessment and Plan Assessment and plan: --Suicidal attempt; patient is on suicidal watch Psych Following --Drug overdose with muscle relaxers,symptoms completely resolved, --Toxic metabolic encephalopathy Resolved back to baseline mental status --DVT prophylaxis; SCDs --1013 status per psych --Discharge planning. Transfer to inpatient psych facility when set up per case management Patient is medically stable for discharge and transfer to inpatient psych facility plan of care discussed with the patient and her nurse History Interval history: Patient seen and evaluated medical records reviewed No new events reported by the nursing staff 1013 status Hospitalist Physical - Constitutional Vitals: Temp Pulse Resp BP Pulse Ox 98.4 F 103 H 18 108/54 99 06/27/17 08:12 06/27/17 08:12 06/27/17 08:12 06/27/17 08:12 06/26/17 23:58 General appearance: Present: no acute distress, well-nourished - EENT Eyes: Present: PERRL, EOM intact - Neck Neck: Present: supple, normal ROM - Respiratory Respiratory effort: normal Respiratory: negative: rales, rhonchi, wheezing - Cardiovascular Rhythm: regular Heart Sounds: Present: S1 & S2 - Extremities Extremities: no ischemia, pulses intact - Abdominal General gastrointestinal: soft, non-tender, non-distended, normal bowel sounds - Integumentary Integumentary: Present: clear, warm - Psychiatric Psychiatric: appropriate mood/affect, cooperative - Neurologic Neurologic: CNII-XII intact, moves all extremities Results - Labs CBC & Chem 7: 06/22/17 04:10 06/22/17 04:20 Labs: Laboratory Last Values WBC 10.0 K/mm3 (4.5-11.0) 06/22/17 04:10 RBC 3.53 M/mm3 (3.65-5.03) L 06/22/17 04:10 Hgb 10.9 gm/dl (10.1-14.3) 06/22/17 04:10 Hct 33.0 % (30.3-42.9) 06/22/17 04:10 MCV 93 fl (79-97) 06/22/17 04:10 MCH 31 pg (28-32) 06/22/17 04:10 MCHC 33 % (30-34) 06/22/17 04:10 RDW 13.6 % (13.2-15.2) 06/22/17 04:10 Plt Count 205 K/mm3 (140-440) 06/22/17 04:10 Lymph % (Auto) 26.2 % (13.4-35.0) 06/22/17 04:10 [place] % (Auto) 6.3 % (0.0-7.3) 06/22/17 04:10 Eos % (Auto) 1.5 % (0.0-4.3) 06/22/17 04:10 Baso % (Auto) 1.0 % (0.0-1.8) 06/22/17 04:10 Lymph # 2.6 K/mm3 (1.2-5.4) 06/22/17 04:10 [place] # 0.6 K/mm3 (0.0-0.8) 06/22/17 04:10 Eos # 0.1 K/mm3 (0.0-0.4) 06/22/17 04:10 Baso # 0.1 K/mm3 (0.0-0.1) 06/22/17 04:10 Seg Neutrophils % 65.0 % (40.0-70.0) 06/22/17 04:10 Seg Neutrophils # 6.5 K/mm3 (1.8-7.7) 06/22/17 04:10 PT 14.9 Sec. (12.2-14.9) 06/21/17 00:15 INR 1.11 (0.87-1.13) 06/21/17 00:15 APTT 28.8 Sec. (24.2-36.6) 06/21/17 00:15 Sodium 143 mmol/L (137-145) 06/22/17 04:20 Potassium 3.6 mmol/L (3.6-5.0) 06/22/17 04:20 Chloride 108.8 mmol/L (98-107) H 06/22/17 04:20 Carbon Dioxide 23 mmol/L (22-30) 06/22/17 04:20 Anion Gap 15 mmol/L 06/22/17 04:20 BUN 5 mg/dL (7-17) L 06/22/17 04:20 Creatinine 0.6 mg/dL (0.7-1.2) L 06/22/17 04:20 Estimated GFR > 60 ml/min 06/22/17 04:20 BUN/Creatinine Ratio 8.33 % 06/22/17 04:20 Glucose 112 mg/dL (65-100) H 06/22/17 04:20 Lactic Acid 1.40 mmol/L (0.7-2.0) 06/21/17 00:15 Calcium 8.1 mg/dL (8.4-10.2) L 06/22/17 04:20 Total Bilirubin 0.50 mg/dL (0.1-1.2) 06/22/17 04:20 AST 12 units/L (5-40) 06/22/17 04:20 ALT 7 units/L (7-56) 06/22/17 04:20 Alkaline Phosphatase 39 units/L (35-129) 06/22/17 04:20 Ammonia 29.0 umol/L (25-60) 06/21/17 00:15 Total Creatine Kinase 101 units/L (30-135) 06/21/17 00:15 Troponin T < 0.010 ng/mL (0.00-0.029) 06/21/17 00:15 Total Protein 6.0 g/dL (6.3-8.2) L 06/22/17 04:20 Albumin 3.5 g/dL (3.9-5) L 06/22/17 04:20 Albumin/Globulin Ratio 1.4 % 06/22/17 04:20 TSH 2.710 mlU/mL (0.270-4.200) 06/21/17 00:15 HCG, Quant < 2 mIU/mL (0-4) 06/21/17 00:15 Urine Color Yellow (Yellow) 06/21/17 00:11 Urine Turbidity Clear (Clear) 06/21/17 00:11 Urine pH 5.0 (5.0-7.0) 06/21/17 00:11 Ur Specific [place] 1.014 (1.003-1.030) 06/21/17 00:11 Urine Protein <15 mg/dl mg/dL (Negative) 06/21/17 00:11 Urine Glucose (UA) Neg mg/dL (Negative) 06/21/17 00:11 Urine Ketones 20 mg/dL (Negative) 06/21/17 00:11 Urine Blood Mod (Negative) 06/21/17 00:11 Urine Nitrite Neg (Negative) 06/21/17 00:11 Urine Bilirubin Neg (Negative) 06/21/17 00:11 Urine Urobilinogen < 2.0 mg/dL (<2.0) 06/21/17 00:11 Ur Leukocyte Esterase Neg (Negative) 06/21/17 00:11 Urine WBC (Auto) 1.0 /HPF (0.0-6.0) 06/21/17 00:11 Urine RBC (Auto) 4.0 /HPF (0.0-6.0) 06/21/17 00:11 U Epithel Cells (Auto) < 1.0 /HPF (0-13.0) 06/21/17 00:11 Urine Bacteria (Auto) 1+ /HPF (Negative) 06/21/17 00:11 Hyaline Casts 2 /LPF 06/21/17 00:11 Urine Mucus 1+ /HPF 06/21/17 00:11 Salicylates < 0.3 mg/dL (2.8-20.0) L 06/21/17 00:15 Urine Opiates Screen Presumptive negative 06/21/17 00:11 Urine Methadone Screen Presumptive negative 06/21/17 00:11 Acetaminophen < 15.0 ug/mL (10.0-30.0) 06/21/17 00:15 Ur Barbiturates Screen Presumptive positive 06/21/17 00:11 Ur Phencyclidine Scrn Presumptive negative 06/21/17 00:11 Ur Amphetamines Screen Presumptive negative 06/21/17 00:11 U Benzodiazepines Scrn Presumptive negative 06/21/17 00:11 Urine Cocaine Screen Presumptive positive 06/21/17 00:11 U Marijuana (THC) Screen Presumptive negative 06/21/17 00:11 Drugs of Abuse Note Disclamer 06/21/17 00:11 Plasma/Serum Alcohol < 0.01 gm% (0-0.07) 06/21/17 00:15
[2017-06-28] MEDS: LOVENOX SUB-Q SCH (11:11)
[2017-06-28] MEDS: WELLBUTRIN PO SCH (11:11)
--- NOTE | 2017-06-28 18:03 | Progress Note ---
Assessment and Plan - Patient Problems (1) Encephalopathy Current Visit: Yes Status: Acute Plan to address problem: Toxic encephalopathy secondary to Flexeril overdose. Poison control recommendations on the chart. IV fluids for now. Symptomatic treatment. Patient may need to be transferred to mental health institution for further care once she is stable. (2) Overdose Current Visit: Yes Status: Acute Qualifiers: Encounter type: initial encounter Injury intent: I Plan to address problem: Overdose with Flexeril. Apparently took about 40 pills of Flexeril each having a dose of 10 mg. Patient is combative initially now lethargic and sleeping. Patient was given Geodon 10 mg IM 1 in the ER. IV fluids for the time being. Symptomatic treatment. Mental health evaluation. Close monitoring. (3) Polysubstance (excluding opioids) dependence Current Visit: Yes Status: Chronic Plan to address problem: Drug screen positive for barbiturates and cocaine. Patient to be initiated on [place] protocol (4) Nicotine dependence Current Visit: Yes Status: Chronic Qualifiers: Nicotine product type: cigarettes Substance use status: S Plan to address problem: NicoDerm patch initiated (5) DVT prophylaxis Current Visit: Yes Status: Acute Plan to address problem: Lovenox 40 mg subcutaneous daily initiated Subjective Date of service: 06/28/17 Objective - Exam Narrative Exam: Sleeping Lethargic Mom at bedside - Constitutional Vitals: Vital Signs - 12hr 06/28/17 06/28/17 07:00 16:00 Temperature 98.5 F 98.5 F Pulse Rate 81 108 H Respiratory 20 20 Rate Blood Pressure 106/69 106/69 O2 Sat by Pulse 99 Oximetry General appearance: Present: no acute distress, well-nourished - EENT Eyes: PERRL, EOM intact ENT: hearing intact, clear oral mucosa Ears: bilateral: normal - Neck Neck: supple, normal ROM - Respiratory Respiratory effort: normal Respiratory: bilateral: CTA - Breasts Breasts: normal - Cardiovascular Rhythm: regular Heart Sounds: Present: S1 & S2. Absent: gallop, rub Extremities: pulses intact, No edema, normal color, Full ROM - Gastrointestinal General gastrointestinal: Present: soft, non-tender, non-distended, normal bowel sounds - Genitourinary Female genitourinary: normal - Integumentary Integumentary: clear, warm, dry - Musculoskeletal Musculoskeletal: 1, strength equal bilaterally - Neurologic Neurologic: moves all extremities - Psychiatric Psychiatric: memory intact, appropriate mood/affect, intact judgment & insight - Labs CBC & Chem 7: 06/22/17 04:10 06/22/17 04:20
[2017-06-29 08:10] VITALS: BP 102/65
[2017-06-29] MEDS: LOVENOX SUB-Q SCH (09:31)
[2017-06-29] MEDS: WELLBUTRIN PO SCH (09:31)
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
--- NOTE | 2017-06-29 16:48 | Discharge Summary ---
Providers - Providers Date of Admission: 06/21/17 06:32 Date of discharge: 06/29/17 Attending physician: JURGEN TEMPLE 06/22/17 09:14 psychiatry consult [Consult to Mental Health] [CONS] Routine Reason For Exam: suicidal /drug OD Place consult to:: correction officer supervisor Notified:: KELLEY Phone number called:: IN HOUSE Was contact made?: Yes If yes, spoke with:: KELLEY Time called:: 14:16 Primary care physician: ASSOCIATE PRODUCER Hospitalization Condition: Good Hospital course: See D/C summary in reports-dictated Disposition: DC-01 TO HOME OR SELFCARE Time spent for discharge: 31 minutes - Discharge Diagnoses (1) Encephalopathy Status: Acute (2) Overdose Status: Acute Qualifiers: Encounter type: initial encounter Injury intent: I (3) Polysubstance (excluding opioids) dependence Status: Chronic (4) Nicotine dependence Status: Chronic Qualifiers: Nicotine product type: cigarettes Substance use status: S (5) DVT prophylaxis Status: Acute Core Measure Documentation - Palliative Care Palliative Care/ Comfort Measures: Not Applicable - Core Measures Any of the following diagnoses?: none Exam - Physical Exam Narrative exam: Sleeping Lethargic Mom at bedside - Constitutional Vitals: Temp Pulse Resp BP Pulse Ox 98.8 F 104 H 20 102/65 97 06/29/17 08:09 06/29/17 08:09 06/29/17 14:06 06/29/17 08:09 06/29/17 08:09 General appearance: Present: no acute distress, well-nourished - EENT Eyes: Present: PERRL ENT: hearing intact, clear oral mucosa - Neck Neck: Present: supple, normal ROM - Respiratory Respiratory effort: normal Respiratory: bilateral: CTA - Cardiovascular Heart Sounds: Present: S1 & S2. Absent: rub, click - Extremities Extremities: pulses symmetrical, No edema Peripheral Pulses: within normal limits - Abdominal General gastrointestinal: Present: soft, non-tender, non-distended, normal bowel sounds Female genitourinary: Present: normal - Integumentary Integumentary: Present: clear, warm, dry - Musculoskeletal Musculoskeletal: gait normal, strength equal bilaterally - Psychiatric Psychiatric: appropriate mood/affect, intact judgment & insight - Neurologic Neurologic: CNII-XII intact, moves all extremities Plan Activity: no restrictions Diet: regular Follow up with: PRIMARY CARE, [Primary Care Provider] - 3-5 Days Prescriptions: buPROPion [Wellbutrin] 150 mg PO DAILY #30 tablet
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
== END 2017-06-29 17:12 | disposition home or self-care (01) | DRG 917 ==
LOC: ED 23:20 → EDBD 23:20 → CC1 06-21 06:32 → 3A 06-22 13:41
PROVIDERS: ADMIT Internal Medicine; ATTEND Internal Medicine
DX: T48.1X1A Poisoning by skeletal muscle relaxants [neuromuscular blocking agents], accidental (unintentional), initial encounter (principal); G92 Toxic encephalopathy; F19.20 Other psychoactive substance dependence, uncomplicated; R45.851 Suicidal ideations; F17.210 Nicotine dependence, cigarettes, uncomplicated; Z82.49 Family history of ischemic heart disease and other diseases of the circulatory system; Z88.8 Allergy status to other drugs, medicaments and biological substances; Y92.89 Other specified places as the place of occurrence of the external cause; F32.9 Major depressive disorder, single episode, unspecified; F90.9 Attention-deficit hyperactivity disorder, unspecified type
CPT/HCPCS: 36415; 70450; 71010; 72125; 80053; 80307; 80320; 81001; 82140; 82550; 84443; 84484; 84702; 85025; 85610; 85730; 93005; 93010; 96360; 96361; 96372; G0480; J1650; J2060; J3486; J7030; J7042